=== PATIENT | male | born 1975 | race Caucasian/White ===

== ENCOUNTER 2018-12-24 22:46 | Emergency (ER) | payer SELFPAY ==
[~2018-12-24] VITALS: Ht 152.4 cm; Wt 113.4 kg
[2018-12-24 23:07] VITALS: Ht 152.4 cm; Wt 113.4 kg
[2018-12-25 03:11] VITALS: BP 109/60
== END 2018-12-25 03:11 ==
LOC: ED 22:46
DX: G24.9 Dystonia, unspecified (principal); R60.0 Localized edema; Z88.8 Allergy status to other drugs, medicaments and biological substances
CPT/HCPCS: Q0092; Q0163